=== PATIENT | female | born 1945 | race Caucasian/White ===

== ENCOUNTER 2019-09-11 22:41 | Inpatient (IN) | payer OTHER ==
[~2019-09-11] VITALS: Ht 170.2 cm; Wt 90.7 kg
[2019-09-11 22:42] VITALS: BP 104/74
[2019-09-11] MEDS ORDERED: ANTIFUNGAL POWD71 GM TOP (22:55)
[2019-09-11] MEDS ORDERED: BISACODYL10 MG RECTAL (22:56)
[2019-09-11] MEDS ORDERED: DULOXETINE HCL60 MG PO (22:56)
[2019-09-11] MEDS ORDERED: ASA81BEC PO (22:56)
[2019-09-11] MEDS ORDERED: FLOVENT HFA 4444 MCG INH (23:01)
[2019-09-11] MEDS ORDERED: FLONASE 0.05%50 MCG NASAL (23:01)
[2019-09-11] MEDS ORDERED: NEURONTIN100 MG PO (23:02)
[2019-09-11] MEDS ORDERED: GLUCOPHAGE1000 MG PO (23:02)
[2019-09-11] MEDS ORDERED: HALDOL 0.5 MG0.5 MG PO (23:03)
[2019-09-11] MEDS ORDERED: GUAIFENESIN DM S5 ML PO (23:03)
[2019-09-11] MEDS ORDERED: IRON325 M1 PO (23:04)
[2019-09-11 23:09] LABS: ABSOLUTE NEUTROPHILS 2.9 thou/uL (1.4-8.2); BASOPHILS 0.6 % (0.0-2.0); EOSINOPHILS 2.6 % (0.0-3.0); HEMATOCRIT 36.1 % (37.0-47.0); HEMOGLOBIN 11.8 gm/dL (12.0-15.0); LYMPHOCYTES 40.6 % (24.0-44.0); MCH 30.9 pg (26.0-34.0); MCHC 32.7 g/dL (28.0-37.0); MCV 94.4 fL (80.0-100.0); MONOCYTES 9.4 % (1.0-8.0); PLATELET COUNT 244 thou/uL (150-400); POLYS 46.8 % (36.0-66.0); RBC 3.83 mil/uL (4.20-5.00); WBC 6.1 thou/uL (4.0-11.0)
[2019-09-11 23:11] LABS: URINE BILIRUBIN NEGATIVE (Negative); URINE BLOOD NEGATIVE (Negative); URINE CLARITY CLEAR; URINE COLOR YELLOW; URINE GLUCOSE-RANDOM* NEGATIVE (Negative); URINE KETONES NEGATIVE (Negative); URINE NITRITE-REFLEX NEGATIVE (Negative); URINE PROTEIN (DIPSTICK) NEGATIVE (Negative); URINE SPECIFIC GRAVITY 1.025 (1.005-1.035); URINE UROBILINOGEN 0.2 E.U./dl (0.2-1.0)
[2019-09-11] MEDS ORDERED: PRINIVIL10 MG PO (23:14)
[2019-09-11] MEDS ORDERED: KRISTALOSE20 GM PO (23:14)
[2019-09-11] MEDS ORDERED: LORATIDINE 10 M10 M1 PO (23:15)
[2019-09-11] MEDS ORDERED: MILK OF MA400 MG/5 M PO (23:16)
[2019-09-11] MEDS ORDERED: MINTOX SUSPENS355 ML PO (23:17)
[2019-09-11] MEDS ORDERED: SEROQUEL 100 M100 M1 PO ×2 (23:19→23:20)
[2019-09-11] MEDS ORDERED: MYRBETRIQ50 MG PO (23:19)
[2019-09-11] MEDS ORDERED: SUPER THERAVIT1 EACH PO (23:19)
[2019-09-11] MEDS ORDERED: SINGULAIR 10 MG10 M1 PO (23:19)
[2019-09-11] MEDS ORDERED: SENNA PLUS TAB1 EACH PO (23:20)
[2019-09-11] MEDS ORDERED: REQUIP XL2 MG PO (23:20)
[2019-09-11] MEDS ORDERED: SIMVASTATIN80 MG PO (23:21)
[2019-09-11 23:22] LABS: ANION GAP 11 mmol/L (7-16); BUN 30 mg/dL (7-18); CALCIUM 9.4 mg/dL (8.5-10.1); CHLORIDE 105 mmol/L (98-107); CO2 21 mmol/L (21-32); CREATININE 1.5 mg/dL (0.6-1.0); GLUCOSE 125 mg/dL (74-106); POTASSIUM 4.4 mmol/L (3.5-5.1); SODIUM 137 mmol/L (136-145); URINE LEUKOCYTES-REFLEX 2+ (Negative)
[2019-09-11] MEDS ORDERED: TOPROL XL25 MG PO (23:23)
[2019-09-11] MEDS ORDERED: TRAMADOL 50 MG50 MG PO (23:25)
[2019-09-11 23:26] LABS: BACTERIA-REFLEX 1-9 Few /HPF (None Seen); CASTS None Seen /LPF (None Seen); CRYSTALS None Seen /LPF (None Seen); MUCUS 0-3 Light strn/LPF (None Seen); SQUAMOUS None Seen /LPF (0-3); TRANSITIONAL EPITHEL CELL 4-10 Moderate /LPF (None Seen); URINE RBC 0-2 Rare /HPF (0-2); URINE WBC-REFLEX 6-15 Few /HPF (0-5)
[2019-09-11 23:58] LABS: ALBUMIN 3.9 g/dL (3.4-5.0); SGOT 6 U/L (15-37); SGPT 20 U/L (30-65); TOTAL BILIRUBIN 0.3 mg/dL (<0.1-1.0); TOTAL PROTEIN 7.9 g/dL (6.4-8.2); TROPONIN-I <0.06 ng/mL (<0.06)
[2019-09-12 01:50] VITALS: BP 115/69
[2019-09-12 02:01] VITALS: BP 115/69
[2019-09-12 03:00] VITALS: BP 101/65
--- NOTE | 2019-09-12 05:21 | NUR ---
PT ARRIVED ON UNIT FROM ER AT 0230. RESIDES AT [facility]. ADMITTED WITH AMS--UTI. RESTING COMFORTABLY. NO NEEDS VOICED. CALL LIGHT WITHIN REACH. WILL CONTINUE TO PROVIDE FREQUENT OBSERVATION.
[2019-09-12 07:35] LABS: CALCIUM 9.4 mg/dL (8.5-10.1); CREATININE 1.5 mg/dL (0.6-1.0); POTASSIUM 4.4 mmol/L (3.5-5.1)
[2019-09-12 07:36] LABS: TSH 6.023 uIU/mL (0.358-3.740)
[2019-09-12 08:02] LABS: FOLIC ACID 33.6 ng/mL (8.6-58.9)
[2019-09-12 08:24] VITALS: BP 139/74
--- NOTE | 2019-09-12 10:51 | NUR ---
PT. CARE RESUMED AT 0700. PT. GETTING UP TO THE BEDSIDE COMMODE. PT IS NOT IN DISCOFORT OR ANY PAIN. SPOKE TO DR. HIGGINS AND DISCUSSED HOSPITAL STAY. PT. SITTING UP IN THE RECLINER. PT IS STILL CONFUSSED TO WHERE SHE IS IS ORIENTED TO TIME AND PERSON. IV FLUSHES AND IS PATENT WITH NO SIGNS OF REDNESS OR EDEMA. IV FLUIDS RUNNING.
--- NOTE | 2019-09-12 11:19 | EKG ---
[address] [address] ELECTROCARDIOGRAM REPORT Name: WING EVANS Room #: 436-P ADM IN M.R.#: [id number] Admission: 09/12/19 Attend Phys: Cristóbal Whitfield MD Discharge: Date of : 49 Report #: [id number] THIS REPORT FOR: //name// [facility] ED Test Date: 2019-09-11 Test Time: 23:17:05 Pat Name: WING EVANS Department: Room: 436 Gender: F Gas Check Pad Maker: soto coleman rn : 1945 Requested By: Dallas Raman Order Number: [id number] MD: Gilmar Montoya Measurements Intervals Cora Rate: 80 P: TN: QRS: 7 QRSD: 89 T: 64 QT: 377 QTc: 435 Interpretive Statements Sinus with PACs No previous ECG available for comparison Electronically Signed On 09-12-2019 11:19:20 [employer]OTCH [employer]IE[employer]ER by Gilmar Montoya [email or web address] <ELECTRONICALLY SIGNED> By: Gilmar Montoya MD 09/12/19 1119 [id number] [id number] MD JAMIE Chowdary
[2019-09-12 17:16] VITALS: BP 119/62
[2019-09-12 20:26] VITALS: BP 125/56
[2019-09-13 00:27] VITALS: BP 146/69
--- NOTE | 2019-09-13 02:06 | NUR ---
PT LYING IN BED. DENIES NEED FOR PAIN MEDICATION. SOME INCONTINENCE. RESTING COMFORTABLY. NO NEEDS VOICED. CALL LIGHT WITHIN REACH. WILL CONTINUE TO PROVIDE FREQUENT OBSERVATION.
[2019-09-13 07:51] VITALS: BP 151/75
--- NOTE | 2019-09-13 09:49 | NUR ---
ASSUMED CARE OF PT AT 0700. PT IS AOX2, FORGETFUL AT TIMES. PT WAS SINGING A SONG TO SELF DURING INTERACTION WITH NURSE. PT ABLE TO STATE PERSON AND PLACE. PT RATES PAIN 2/10, PAIN IN HIP CONTROLLED WITH ORAL ANALGESIC. PT TOLERATING DIET, FALL PRECAUTIONS IN PLACE. CALL LIGHT/PERSONAL ITEMS IN REACH. CONSULT CALLED TO PSYCH UNIT. WILL CONTINUE TO MONITOR PT FOR SAFTY.
--- NOTE | 2019-09-13 13:19 | NUR ---
ASSESSMENT-PT LIVED AT [facility] FOR 8 YRS BUT GOT WHERE SHE REQUIRED MORE ASSISTANCE AND MOVED INTO ASSISTED LIVING AT [facility] IN DECEMBER 2018. GRANDYASMEEN GRACIELA HELPS PT WITH HER AFFAIRS BUT DOES NOT HAVE POWER OF MEDICAL DETAILIST. PT HAS A DTR ANNA BUT PER BJ SHE HAS NOT HAD MUCH TO DO WITH THE PT. S/W ANNA BY PHONE WELL AND SHE ADMITS TO BEING ESTRANGED BUT WANTS TO GET MORE INVOLVED BUT SAYS BJ IS THE PERSON TO MAKE DECISIONS IF PT IS UNABLE. PT USES A WALKER FOR SHORT DISTNACES AND A WC FOR LONGER DISTANCES. PT RECEIVES ASSISTANCE WITH ADLS. 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 FABIOLA SAYS EVERY 1-2 MONTHS THAT PT BECOMES AGGRESSIVE OR AGITATES OT VERY CONFUSED AND HAS TO BE HOSPITALIZED TO ADJUST MEDS. PT HAS BEEN TO PSYCH AT [facility] AND [facility] [place] PER DTR. FOLLOWING TO ASSIST WITH DC PLANNING.
[2019-09-13 15:10] VITALS: BP 110/48
--- NOTE | 2019-09-13 17:22 | NUR ---
I have reviewed the documentation by POPPY DIALLO from 09/13/19 to 09/13/19 and I concur with it. GWEN LIPSCOMB
[2019-09-13 19:20] VITALS: BP 159/84
--- NOTE | 2019-09-14 02:59 | NUR ---
ASSESSMENT COMPLETED.PT ALERT,CONFUSED AND FORGETFUL.PT OBSERVED SINGING IN HER ROOM TWICE IN A LOUD VOICE, WAS EASILY REDIRECTED. PT WITH INCONTINENCE,PERICARE WITH EACH INCONT.IVF AND IV ABX INFUSING.PT ABLE TO REPOSITION SELF IN BED.PT SLEEPING ON HER BED AT THIS TIME.FALL PRECAUTIONS IN PLACE,CALL LIGHT WITHIN REACH.
[2019-09-14 04:35] VITALS: BP 154/86
[2019-09-14 07:45] VITALS: BP 153/84
--- NOTE | 2019-09-14 10:02 | NUR ---
PT RESIDES AT [facility] FAXED CLINICAL UPDATE TO FACILITY SPOKE WITH MAMADOU IN ADM SHE RECEIVED UPDATE. DP TO FOLLOW.
--- NOTE | 2019-09-14 11:44 | NUR ---
I was asked to assess the patient to see if she would meet criteria for inpatient psych. Fabiana is sitting in the recliner. She is singing loudly and talking to someone. No one was in her room at this time. I introduced myself to Fabiana, and asked if I could speak to her. She kept singing and told me to go f--k myslef. I called Dr. Gordillo and informed him of the situation. He stated he would review the case.
[2019-09-14] MEDS ORDERED: NOVOLOG100 UNIT/1 SUBQ (13:09)
[2019-09-14] MEDS ORDERED: TYLENOL325 MG PO (13:09)
[2019-09-14] MEDS ORDERED: TOPAMAX 25 MG T25 M1 PO (13:09)
--- NOTE | 2019-09-14 15:06 | NUR ---
PT IS CONFUSED AND FORGETFUL. PT RECEIVED REDIRECTION FROM NURSE. NONSTOP SINGING AND WITH HER EYES CLOSED. PT HAS POOR APPETITE WITH BREAKFAST AND LUNCH. PT PREOCCUPIED WITH SINGING. VSS, GAVE REPORT TO BOB ON PSYCH UNIT. PT TRANSFERRED BY WHEELCHAIR VIA STAFF. IV DISCONTINUED.
--- NOTE | 2019-09-14 16:47 | NUR ---
LEFT MESSAGES X2 FOR GRANDSON GRACIELA TO ALERT OF PSYCH REC FOR TRANSFER TO BEHAVIORAL HEALTH UNIT HERE AT [facility] TODAY. ALSO LEFT MESSAGE FOR PT'S DTR ANNA TO ALERT OF THIS WELL. S/W MAMADOU ADM ARIAS FROM [facility] AND SHE SAYS YES THEY WOULD BE ABLE TO ACCEPT PT BACK ONCE MEDICALLY STABLE. SHE SAYS DEPENDING ON DX PT MIGHT NEED A LEVEL II BEFORE RETURNING BACK TO THEM BUT THEY WOULD BE ABLE TO TAKE HER BACK. NURSES NOTES FROM FACILITY OBTAINED AND THIS INFO WAS RELAYED TO DR HIGGINS AND TO DR NEAL AND DECISION WAS MADE TO ADMIT PT TODAY TO [facility] TODAY FOR MEDICATION REGULATION. PT HAS CONTINUED TO CHANT CONSTANTLY ALL DAY.
== END 2019-09-14 15:16 | DRG 689 ==
LOC: ER 22:41 → EROBS 09-12 00:46 → 4S 09-12 00:46 → SBH 09-14 15:09 → 4S 09-14 15:11
PROVIDERS: Nurse Practitioner Family; Physician Assistant; ADMIT Internal Medicine
DX: N39.0 Urinary tract infection, site not specified (principal); G93.41 Metabolic encephalopathy; N17.9 Acute kidney failure, unspecified; G93.40 Encephalopathy, unspecified; F03.91 Unspecified dementia, unspecified severity, with behavioral disturbance; K59.00 Constipation, unspecified; G25.81 Restless legs syndrome; E11.42 Type 2 diabetes mellitus with diabetic polyneuropathy; I12.9 Hypertensive chronic kidney disease with stage 1 through stage 4 chronic kidney disease, or unspecified chronic kidney disease; E11.22 Type 2 diabetes mellitus with diabetic chronic kidney disease; F32.9 Major depressive disorder, single episode, unspecified; F41.9 Anxiety disorder, unspecified; N18.3 Chronic kidney disease, stage 3 (moderate); E78.5 Hyperlipidemia, unspecified; F25.9 Schizoaffective disorder, unspecified; F39 Unspecified mood [affective] disorder; F43.10 Post-traumatic stress disorder, unspecified; R41.0 Disorientation, unspecified; E66.9 Obesity, unspecified; Z68.31 Body mass index [BMI] 31.0-31.9, adult; Z88.6 Allergy status to analgesic agent; Z88.1 Allergy status to other antibiotic agents; Z88.0 Allergy status to penicillin; Z88.8 Allergy status to other drugs, medicaments and biological substances; Z79.82 Long term (current) use of aspirin; Z79.899 Other long term (current) drug therapy
CPT/HCPCS: 10100; 10102

== ENCOUNTER 2019-09-14 15:18 | Inpatient (IN) | payer OTHER ==
[~2019-09-14] VITALS: Ht 170.2 cm; Wt 76.8 kg
[~2019-09-14 15:18] MED LIST: ANTIFUNGAL POWD71 GM TOP; ASA81BEC PO; BISACODYL10 MG RECTAL; DULOXETINE HCL60 MG PO; FLONASE 0.05%50 MCG NASAL; FLOVENT HFA 4444 MCG INH; GLUCOPHAGE1000 MG PO; GUAIFENESIN DM S5 ML PO; HALDOL 0.5 MG0.5 MG PO; IRON325 M1 PO; KRISTALOSE20 GM PO; LORATIDINE 10 M10 M1 PO; MILK OF MA400 MG/5 M PO; MINTOX SUSPENS355 ML PO; MYRBETRIQ50 MG PO; NEURONTIN100 MG PO; NOVOLOG100 UNIT/1 SUBQ; PRINIVIL10 MG PO; REQUIP XL2 MG PO; SENNA PLUS TAB1 EACH PO; SEROQUEL 100 M100 M1 PO; SIMVASTATIN80 MG PO; SINGULAIR 10 MG10 M1 PO; SUPER THERAVIT1 EACH PO; TOPAMAX 25 MG T25 M1 PO; TOPROL XL25 MG PO; TRAMADOL 50 MG50 MG PO; TYLENOL325 MG PO
--- NOTE | 2019-09-14 18:31 | NUR ---
PT ARRIVES TO UNIT VIA AT APPROX 1500 ACC[address]ED BY [address] [place] [address] NURSING STAFF. PER REPORT CALLED TO THIS RN FROM [facility] SP[facility]Y PT ADMITTED TO [address] [place] [address] 09/12 WITH AMS And to r/o UTI. HAS BEEN RESIDING AT [facility] PRIOR TO HOISPITAL ADMIT. REPORTED TO HAVE DPOA ANNA TROY [phone] WHO WOULD BE SIGNIING HER INTO [facility] ARRIVAL TO UNIT PT IS YELLING LOUDLY-IN SINGING TYPE CADANCE AND RHYTHM-UNABLE TO BE REDIRECTED OFF OF SINGING TO ANSWER ANY QUESTIONS FOR ADMIT INTERVIEW. UNABLE TO DETERMINE ORIENTATION LEVEL D/T CLINICAL CONDITION. ANNA TROY CONTACTED TO OBTAIN CONSENTS FOR ADMIT HOWEVER STATES SHE IS NOT DPOA NOR IS OTHER IDENTIFIED CONTACT [phone]. DR. NEAL NOTIFIED OF ABOVE -ORDERS OBTAINED FOR GEODON 10MG IM FOR AGITATION AND CONSTANT SCREAMING-ADMINISTERED IM LVG AT APPROX 1627 WITH LITTLE RESULTS NOTED. DR HIGGINS CONTACTED REGARDING S.S INSULIN ORDERS-AND INDICATES HE WOULD ORDER. BLOOD SUGAR CHECKED AT 1700 DESPITE MUCH RESISITANCE AND IS 112-PT REFUSING TO EAT SUPPER. NOTED ON ADMIT TO HAVE REDDNED EXCORIATED AREA TO MIDLINE COCYX-PHOTOS OBTAINED AND PLACED IN CHART. ADMIT VS 145/67 P-80 R-18 P 82. O2 SAT 92 D/T
[2019-09-14 19:30] VITALS: BP 167/76
[2019-09-14 19:31] VITALS: BP 121/47
--- NOTE | 2019-09-15 06:23 | NUR ---
Care assumed of patient at 1915: Nurse entered room to assess patient. Patient continually singing at a very loud volume. Patient not able to answer any questions appropriately. No s/s of pain or discomfort observed. No s/s of delusional or paranoia behaviors, AH or VH. Patient took HS medication whole without difficulty. Nurse sang to patient at a loud volume for her to focus on taking her medication and drinking water out of straw. Patient did not make any eye contact, blunted affect. Patient was able to fall asleep approximately 30 minutes after taking medications and had slept quietly until approximately 0115. This nurse entered room at that time to see if patient had been incontinent of bladder/bowel. Patient woke up, looked at nurse and said very clearly "hi". Nurse introduced self. Patient then stated "I am going to need a room with a TV, the room I had before had a TV, this is important". Education provided that there are no TVs in patient rooms on this floor and the doctors feel it important that she be on this floor. Patient stated "oh, ok" but did look confused. Patient incontinent of bladder. Hannah care provided, linens changed, barrier cream applied to buttock which appears reddened/excoriated. Patient was able to state that she is at [facility], the current month and year, her birthdate, the facility that she resides at. Denies pain or discomfort. Patient states that she is able to walk around at her previous facility with a walker. Patient asked what she needed to do if she had to use the bathroom. Patient provided a call calix and was educated on use. Patient able to turn side to side in bed with mod assist x2. Patient was asked if she remembered singing earlier in the night, she stated yes. She stated that she sings to relieve her stress. Patient educated that it is important to respect other patients and if she is asked ot lower her singing volume, she needs to respect that. Patient states she understood. Patient also educated that it is important to work with the doctors and all staff when she is asked questions and to participate in her care plan. Patient stated that she understood. Patient slept a total of 7.7 hours this shift. Staff responded to call calix around 0500. Patient stated that she needed to have a bowel movement. Patient was incontinent of bladder but continent of bowel in bedside commode. Patient required mod assist x2 for transfer. Patient requested to get up for the day and reports that she hasn't slept that well in a long time. Patient assisted with AM hygiene. Patient sitting in dayroom with newspaper, word search and magazines at this time. Patient pleasant, cooperative and respectful.
--- NOTE | 2019-09-15 07:00 | NUR ---
Assumed care of patient this am. Patient in good spirits. Patient communicating appropriately. Patients affect soft. Patient ambulates without assistance. Patient takes medications whole with water. Patients assessment reveals clear breath sounds, active bowel sounds, and s1 s2 heard with auscultation.
[2019-09-15 07:30] VITALS: BP 141/63
--- NOTE | 2019-09-15 08:40 | NUR ---
SW called gr daughter to assist with intake assessment and left a VM
--- NOTE | 2019-09-15 08:48 | NUR ---
Assess due to low jaren score. Pt admit to [facility] unit for unspecified psychosis. Has hx schizoaffective disorder, PTSD, dementia, DM. BG 171-256 so will change diet to carb control. Was eating 75-80% while on acute unit in hospital, but 30% on admit day of [facility]. 2 different wts documented 200 lb vs 170 lb. Will follow up again on 09/20 to determine further intake trends and pt should be reweighed over the weekend. Low nutrition risk at this time
[2019-09-15 09:13] VITALS: BP 141/63
--- NOTE | 2019-09-15 09:20 | H ---
[facility] [place] [address] HISTORY AND PHYSICAL Name: WING EVANS Room #: 522A-A ADM IN .R.#: [id number] Admission: 09/14/19 Attend Phys: Atif Gordillo DO Discharge: Date of : 49 Report #: [id number] THIS REPORT FOR: //name// CC: Atif Gordillo Donald Gonzales DATE OF SERVICE: 09/14/2019 INPATIENT PSYCHIATRIC EVALUATION ATTENDING PHYSICIAN: Atif Gordillo DO. URBAN SOCIOLOGIST: Mike Mayer MD REASON FOR ADMISSION: The patient transferred from the medical floor where she was admitted from 09/12/2019 to 09/14/2019 for a urinary tract infection and delirium. The patient has been quite symptomatic with loud verbalizations concerning not only for psychosis but evolving catatonia. HISTORY OF PRESENT ILLNESS: This is a 74-year-old female admitted on 09/12/2019, resides at the [facility]. The patient was admitted as stated with the urinary tract infection. She also has significant medical history of schizophrenia, PTSD, cognitive deficits, particularly with communication. The patient was not any more cooperative or able to be interviewed tonight as she also was unable to redirect informant 2 days ago. Apparently from correction reports, she has been increasingly disoriented over the last 2 days, so that would be 4 days total now, with auditory and visual hallucinations. Ativan and Haldol have not been effective. The patient was seen unintelligibly in the ER. She has a history of 2 inpatient psychiatric treatments at [facility] and [facility]. The patient has also received substance abuse treatment for alcohol at [facility]. The patient herself was having difficulty staying awake in the ER, but she has been awake all the time she has been on the geriatric psychiatry unit this afternoon. She was not cooperative with stating her name or other commands. She also did not respond to noxious stimuli such as sternal rub or pinching her big toe. ALLERGIES: CODEINE, ERYTHROMYCIN, PENICILLINS, PHENOBARBITAL. The laboratories are reviewed later. MEDICATIONS: At nursing facility include miconazole, aspirin, bisacodyl, duloxetine, fluticasone, gabapentin, metformin, haloperidol, ferrous sulfate, lactulose, lisinopril, loratadine, magnesium hydroxide, montelukast, vitamins, mirabegron which is Myrbetriq for bladder, Seroquel, ropinirole, senna, simvastatin, metoprolol, tramadol. [address] [address] HISTORY AND PHYSICAL Name: WING EVANS Room #: 52-A [facility] IN ..#: [id number] Admission: 09/14/19 Attend Phys: Atif Gordillo DO Discharge: Date of : 49 Report #: [id number] PAST MEDICAL HISTORY: Includes influenza pneumonia at some point, dysphagia, gait abnormality, hypertension, anemia, constipation, peripheral neuropathy, restless leg syndrome, hyperlipidemia, tremors, diabetes mellitus type 2. PSYCHIATRIC HISTORY: As stated above, includes PTSD, schizophrenia, depression, anxiety. SOCIAL HISTORY: Known alcohol use, unable to ascertain other substance use. REVIEW OF SYSTEMS: Cannot be completed due to the patient's lack of cooperation. LABORATORY DATA: Most recently on September 11, hematology: H and H 10.8 and 36.1, white count 6.1, platelet count 244. Sodium 139, potassium 4.4, chloride 105, bicarbonate 20, anion gap 14, BUN 29, creatinine 1.5, this was done in September, estimated GFR 34, glucose 107. Lactic acid 0.9, calcium 9.4, total bilirubin 0.3, AST 6, ALT 20, alkaline phosphatase 84. Troponin less than 0.06. Total protein 7.9, albumin 3.9. B12 level 1713, folate 33.6. Urinalysis at the time of admission showed 2+ leukocyte esterase, 6-15 wbc's, moderate epithelial cells, 1-9 bacteria, 0-3 light urine mucus. The patient's urine culture did not grow any significant anup. Chest x-ray done on 09/11/2019 showed right basilar atelectasis, infiltrate, retrocardiac, left lower lobe atelectasis, infiltrate with mild cardiomegaly. Upper lungs and mid lungs appear clear. PHYSICAL EXAMINATION: VITAL SIGNS: On the day of admission, temperature 36.7, pulse 70, respirations 18, BP 121/47, O2 sat 95%. MUSCULOSKELETAL: Nonambulatory in bed. Significant psychomotor agitation. MENTAL STATUS EXAMINATION: This is a well-developed, disheveled female appearing stated age, lying in bed, saying unintelligibly at times, nonreactive to the environment. Attention impaired. Concentration impaired. Speech abnormal. Thought process is nonlinear. Thought content, difficult for her to focus, some psychomotor agitation, no psychomotor retardation, unable to assess for suicidality or homicidality; auditory, visual, or tactile hallucinations. Insight impaired. Judgment impaired. FORMULATION: A 74-year-old female transferred to geriatric psychiatry after 2 days' stay in the medical unit with continued poor clarity of thoughts and bizarre behavior. 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 Medical comorbidities include diabetes mellitus type 2, chronic peripheral neuropathy, hypertension, hyperlipidemia, restless leg syndrome. [facility] [place] [address] HISTORY AND PHYSICAL Name: WING EVANS Room #: 522A-A ADM IN M.R.#: [id number] Admission: 09/14/19 Attend Phys: Atif Gordillo DO Discharge: Date of : 49 Report #: [id number] PLAN: Evaluate, stabilize, obtain collateral. Given the precarious situation, we will make several adjustments. Seroquel 100 mg at bedtime and 50 mg p.o. daily in the morning. Continue loratadine 10 mg p.o. daily, ferrous sulfate 325 mg p.o. daily, aspirin 325 mg p.o. daily. We will give her 1 Senna S tab p.o. twice per day, 1 Requip 2 mg p.o. at bedtime and an additional 25 mg at bedtime Seroquel; continue metoprolol succinate 25 mg at bedtime. Start scheduled lorazepam 9:00, 3:00, 9:00 p.m. forced if she refuses due to seriousness involving catatonia. ESTIMATED LENGTH OF STAY: 10-14 days. Time spent on review of records, coordination of care and minimal information from the patient is about 45 minutes. STRENGTHS: She is insured. WEAKNESSES: Advancing age, difficulty with treatment of catatonia. <ELECTRONICALLY SIGNED> By: Atif Gordillo DO 09/15/19919 41 26 Atif Gordillo DO /nt
--- NOTE | 2019-09-15 13:33 | NUR ---
Bowen spoke with [facility] and completed the intake and treatment plan. Pt has an estranged relationship with her dueduardoer but is closer to her grandsons BJ [phone] and Atif [phone]. Pt comes from [facility]. Bowen also spoke with admissions at [facility] and they are willing to accpet this pt back into thier communinity.
[2019-09-15 19:41] VITALS: BP 140/83
--- NOTE | 2019-09-16 02:05 | NUR ---
Patient assessed and is alert x 3. SKIN WARM AND DRY. RESP EVEN AND UNLABORED. NO HALLUCINATIONS. NO CATATONIC NOTED. SITS UP IN THE W/C. IS A MOD ASSIST X 1. DOES NOT WALK OTR STAND MUCH. ACCUCHECKS WAS 245 WITH INSULIN GIVEN ORDERED. TAKES MED WELL WHOLE WITH H20. BM WAS 12/. NO NEDEMA NOTEED IN LOWER EXTREMITIES. REMAINS A FALL RISK. LUNGS CTA. ABDOMEN SOFT +4. NO AH/VH THIS SHIFT YET. CONT PLAN OF CARE. REMAINS CONFUSED AT TIMES.
--- NOTE | 2019-09-16 02:47 | NUR ---
DAVID HAS HAD NPO BEHAVIORS THIS SHIFT SI FAR. ALSO WAS VERY COOPERATIVE.
[2019-09-16 06:17] LABS: HEMATOCRIT 37.1 % (37.0-47.0); HEMOGLOBIN 12.1 gm/dL (12.0-15.0); MCH 31.2 pg (26.0-34.0); MCHC 32.8 g/dL (28.0-37.0); MCV 95.1 fL (80.0-100.0); RBC 3.9 mil/uL (4.20-5.00); RDW 12.9 % (10.5-14.5); WBC 4.9 thou/uL (4.0-11.0)
[2019-09-16 06:30] LABS: CALCIUM 9.8 mg/dL (8.5-10.1); CREATININE 1.2 mg/dL (0.6-1.0); MAGNESIUM 1.9 mg/dL (1.8-2.4); POTASSIUM 4.6 mmol/L (3.5-5.1)
--- NOTE | 2019-09-16 08:15 | NUR ---
PT SITTING OUT IN DINNING ROOM. PT IN W/C. PT STATED SHE HAS SOME PAIN TO RT HIP OF 8 ON 1-10 SCALE. PT STATED PAIN IS SHARP AND SOMETIMES SORE. PT STATED SHE CAN BEAR WEIGHT TO LEFT LEG. PT LUNGS CLEAR. COMPLIANT WITH STAFF.
[2019-09-16 08:30] VITALS: BP 138/80
[2019-09-16 08:37] LABS: FOLIC ACID 23.2 ng/mL (8.6-58.9)
--- NOTE | 2019-09-16 15:00 | NUR ---
ASSISTED PT TO BSC X1 PERSON. CHANGED BRIEF WITH SMALL AMOUNT OF URINE. ADM TYLENOL 325MG 2 TABS PO FOR PAIN TO RT HIP OF 8 ON 1-10 SCALE. PT ABLE TO PIVOT FROM W/C TO BSC TO BED.
--- NOTE | 2019-09-16 17:29 | NUR ---
MARGUERITE faxed updates for pt to [facility]. MARGUERITE team will continue to follow pt during her stay.
[2019-09-16 20:05] VITALS: BP 146/63
[2019-09-16 23:12] VITALS: BP 146/63
--- NOTE | 2019-09-16 23:16 | NUR ---
PATIENT WAS IN BED WHEN THIS NURSE CAME ON DUTY AT 1900. PATIENT'S GLUCOSE WAS 167 TONIGHT AT 2000 AND LISPRO 3 UNITS WAS GIVEN. PATIENT IS A/O X 2-3. SHE WAS GIVEN TYLENOL 650 WITH HER HS MEDS TONIGHT D/T 4/10 PAIN AT COCCYX AREA WHERE SHE HAS SMALL EXCORIATION. AREA IS CLEAN AND NO SIGNS OF INFECTION AND OFFICE RN. PATIENT TOOK HER MEDS WHOLE WITH WATER. SHE WAS THIRSTY TONIGHT AND DRANK AROUND 450 CC OF ICE WATER. WHICH IS GOOD SINCE HER BUN IS UP TO 23 AND CREATINE AT 1.2. NO SIGNS OF EDEMA. LUNGS CTA BILATERALLY. HEART SOUNDS REGULAR. BOWELS SOUNDS POSITIVE X4. PATIENT DID REPORT A BM ON DAY SHIFT. PATIENT WAS UP TO THE BSC WITH ASSIST BUT WAS UNABLE TO VOID AFTER GETTING THERE. WILL CONTINUE TO MONITOR THIS. PATIENT NEEDS ASSISTANCE WITH ADLS X 1. SHE USES A WC FOR TRANSFER. BED ALARM ON AND BED IN LOW POSITION.
[2019-09-17 01:06] LABS: GLYCOHEMOGLOBIN (HGB A1C) 7.2 % (4.8-5.6)
--- NOTE | 2019-09-17 05:25 | NUR ---
PATIENT ASSISTED TO BSC. SHE HAD BEEN INCONTINENT OF URINE. BRIEF CHANGED AND SHE WAS CLEANED UP. SHE DID VOID URINE THIS TIME. SHE IS BACK TO BED. PATIENT IS CALM AND COOPERATIVE.
[2019-09-17 07:30] VITALS: BP 130/78
--- NOTE | 2019-09-17 13:56 | NUR ---
Assumed care at 0715 on 09/17/19. AT 0750 PATIENT SITTING IN DAYROOM IN WHEEL CHAIR COMPLAINS OF BEING COLD AND ASKS FOR A BLANKET. BLANKET PROVIDED. SITS AT TABLE FOR BREAKFAST. DENIES OTHER NEEDS. DENIES SI/HI AND AVH. COMPLAINS OF PAIN TO RIGHT HIP TYLENOL GIVEN. wHILE TALKING TO PATIENT SHE STATES THAT SHE REMEMBERS WHAT HER PARENTS TOLD HER " NOT TO TRUST EVERYBODY" THIS BEING SAID AFTER SAYING SHE DOES NOT COMMUNICATE WITH OTHERS FOR THIS REASON. PATIENT CALM AND PLEASANT WHILE TALKING TOO, ACTS APPROPRIATE.
--- NOTE | 2019-09-17 14:33 | NUR ---
MARGUERITE contacted [facility] and spoke to Becky; MARGUERITE provided an update that pt was ready for discharge. She asked that SW contact the liason Savannah at [phone] so she can assess pt. MARGUERITE contacted Savannah who said she would be up this afternoon to visit. MARGUERITE met with Savannah who agreed pt is ready to come back to the facility. She said she will arrange transportation for pt Friday morning and asked SW to fax updates. SW team will continue to follow pt during her stay. [facility] [address] [place] [address]
--- NOTE | 2019-09-17 14:42 | NUR ---
MARGUERITE spoke with Linda (pt's daughter) who wanted an update on pt. SW provided an update. Linda mentioned wanting to get a DPOA doc signed by pt; she wants to be pt's DPOA. MARGUERITE explained that she did not think pt can sign DPOA documents due to her cognitive skills, and if she can then pt has the right to decide who she wants to designate that responsibility. Linda said ok. MARGUERITE, along with pt's nurse, met with pt and explained what a DPOA is. She asked pt orientation questions, and pt could not identify the date or the day. When MARGUERITE asked pt again to tell her in her own words what a DPOA is, she responded "something Jade does." MARGUERITE contacted Linda and let her know pt will be leaving to go back to facility on Friday, and that she was unable to get a DPOA doc signed by pt. Linda asked what the next step is, and MARGUERITE explained she can contact a cord maker and attempt to gain guardianship. Linda stated she is not willing to pay the money for that as it is expensive. MARGUERITE team will continue to follow pt during her stay.
[2019-09-17 19:28] VITALS: BP 163/83
--- NOTE | 2019-09-18 04:17 | NUR ---
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 SHE HAS BEEN SLEEPING THIS ENTIRE SHIFT, WAKING UP FOR MEDS AND ASSESSMENT. PLEASANT AND COOPERATIVE WITH CARES AND ASSESSMENT. TOOK ALL MEDS WHOLE. NO SINGING NOTED.
[2019-09-18 09:21] VITALS: BP 128/70
[2019-09-18 10:32] VITALS: BP 128/70
--- NOTE | 2019-09-18 10:49 | NUR ---
PATIENT HAS BEEN UP AND OUT IN THE DAY ROOM, SITTING IN A WHEELCHAIR. PATIENT TOOK ALL MEDICATION WHOLE WITHOUT DIFFICULTY. PATIENT IS EATING MEALS, AND DRINKING FLUID WELL. PATIENT DENIES SUICIDAL/HOMICIDAL IDEATION. SHE DENIES DEPRESSION/ANXIETY. PATIENT DID ACKNOWLEDGE AUDITORY HALLUCINATION. "ANYTIME I CLOSE MY EYES, I HEAR THIS BLOND LADY SAYING I HAVE BROWN EYE, AND AM . I WISH SHE WILL LEAVE ME ALONE". PATIENT REDIRECTED THAT THE VOICES ARE NOT REAL, PATIENT VERBALIZES UNDERSTANDING, AND STATES. "IT'S REAL TO ME IT MIGHT NOT BE FOR YOU". PATIENT DENIES HAVING PHYSICAL PAIN. NO SIGNS AND SYMPTOMS, OF HYPO/HYPERGLYCEMIA NOTED, INSULIN GIVEN PER SLIDING SCALE ORDER. AFFECT IS HAPPY, MOOD IS CALM. PATIENT PARTICIPATED IN GROUP THERAPY THIS MORNING. NO SIGN OF ACUTE DISTRESS NOTED AT THIS TIME, WILL MONITOR FOR SAFETY.
--- NOTE | 2019-09-18 13:55 | NUR ---
PT. RECEIVED SHOWER TODAY WITH CLIENT REPORTING ASSOCIATE ASSISTANCE.
[2019-09-18 19:11] VITALS: BP 155/90
--- NOTE | 2019-09-19 03:22 | NUR ---
RECIEVED THIS PATIENT FOR AB INITIO ETL DEVELOPER. SHE HAS BEEN LYING IN BED SINCE MY ARRIVAL. EASILY ROUSABLE. PLEASANT AND COOPERATIVE WITH ASSESSMENT PROCESS. TOOK ALL MEDS WHOLE WITHOUT DIFFICULTY. RECIEVED SS INSULIN 4U PER ORSEDS FRO ACCUCHECK OF 207. NO LOUD SINGING THIS SHIFT. HAS BEEN ACKNOWLEDGING A/H. NO C/O. NO APPARENT DISTRESS RESTING QUIETLY AT THIS TIME
--- NOTE | 2019-09-19 08:33 | NUR ---
Date of Admission: 09/14/19 Date of Activity Therapy Assessment:09/17/2019 Activity Goal:Two groups per day Initial Goal:Pt to attend two recreation therapy groups per day to enhance leisure awareness and to identify positive community resources. Weekly progress towards goal:Did not achieve Group participation level: Full engagement when present Behaviors observed:Pt did well in groups. There were moments of confusion and at times struggled with directions. Plan: No change towards goal
[2019-09-19 08:50] VITALS: BP 113/53
--- NOTE | 2019-09-19 08:57 | NUR ---
0644 Report received from overnight shift, patient up and in day room. Patient alert calm cooperative, patient ate breakfast took medication without incidence. Patient attends group but does not really participate. We will continue to monitor patient for safety.
[2019-09-19 09:02] VITALS: BP 113/53
[2019-09-19 19:17] VITALS: BP 139/72
[2019-09-19 22:29] VITALS: BP 139/72
--- NOTE | 2019-09-19 23:51 | NUR ---
PATIENT WAS UP IN THE [facility] IN DINING ROOM SITTING WITH PEERS. SHE HAS BEEN CALM AND COOPERATIVE. SHE TOOK HER MEDS WHOLE. HER GLUCOSE WAS 202 AND SHE WAS GIVEN LISPRO 4U. PATIENT WAS UP TO BSC BEFORE GOING TO BED. SHE IS A/0 X 1-2. SHE DENIES PAIN. NO SI/HI. LUNGS CTA BILATERALLY. BARRIER CREAM TO COCCYX AREA THAT IS RED. BED IN LOW POSITON AND BED ALARM ON. CONTINUING TO MONITOR. PATIENT TO DC TOMORROW.
--- NOTE | 2019-09-20 02:22 | NUR ---
PATIENT UP TO THE BSC. SHE IS VERY SLEEPY AND NOT BEARING WEIGHT WELL. SHE ALERTED US BY DOHERTY THAT SHE NEEDED TO GO. SHE DID VOID URINE. CLEANED LILIAM AREA WITH SOAP AND WATER AND APPLIED BARRIER CREAM TO COCCYX AREA. AREA IS IMPROVING AND NOT RED HAD BEEN AND PATIENT WITHOUT PAIN WHEN AREA CLEANED. BED ALARM ON AND BED IN LOW POSITION.
--- NOTE | 2019-09-20 05:50 | NUR ---
PATIENT RANG FOR NURSE. PATIENT STATES THAT SHE IS NOT FEELING WELL. SHE STATES THAT SHE HAS PAIN IN RIGHT HIP AT 7/10. SHE STATES SHE IS FEELING NAUSEATED. SHE STATES HER LEGS FEEL SWOLLEN BUT THEY DO NOT LOOK SWOLLEN. PATIENT GIVEN ZOFRAN 4MG PO AND TYLENOL 650MG. VSS 110/45, P68 R18 T97.0 AND 02 AT RA IS 99%. CHECKED PATIENT'S B/ 3 TIMES AND HAD LYLE, RN CHECK ALSO FOR ME TO CONFIRM. FIRST READING WAS 105/45 WITH LARGE CUFF. 2ND READING WAS 113/38 WITH REGULAR CUFF AND THEN 110/45 WITH REGULAR CUFF. CALL OUT TO DENISSE BUNN. HOB UP 45%. EMESIS BASIN WITH PATIENT. DRY HEAVES BUT NO VOMITING. SHE WAS GIVEN ICE CREAM HS SNACK AND STATES THAT THIS UPSETS HER STOMACH SOMETIMES WITH HER GERD. PATIENT'S BLOOD GLUCOSE AT 0515 IS 153.
--- NOTE | 2019-09-20 06:03 | NUR ---
SPOKE WITH DONOVAN HALE, DENISSE BY PHONE. MADE HER AWARE OF PATIENT'S BP OF 110/45 AND GLUCOSE OF 153. LET HER KNOW PATIENT IS SCHEDULED TO BE DISCHARGED TODAY. SHE STATED THAT IF PATIENT'S NAUSEA NOT BETTER TO GO AHEAD AND TRY MYLANTA PRN ON HER EMAR. WILL CONTINUE TO MONITOR.
--- NOTE | 2019-09-20 06:30 | NUR ---
PATIENT STATES SHE IS FEELING MUCH BETTER AND DOES NOT WANT THE MYLANTA AT THIS TIME. PATIENT UP TO [facility] AND HAD LARGE BM. SHE STATES THIS MADE HER FEEL SO MUCH BETTER. PATIENT IN DINING ROOM SITTING AT THE TABLE IN HER WC AND SMILING. PATIENT IS DRINKING COFFEE AND WATCHING TV.
[2019-09-20 07:54] VITALS: BP 114/70
[2019-09-20] MEDS ORDERED: SEROQUEL 100 M100 M1 PO (07:56)
[2019-09-20] MEDS ORDERED: SEROQUEL 25 MG25 M1 PO ×2 (07:56)
[2019-09-20] MEDS ORDERED: LORAZEPAM 1 MG T1 MG PO (07:57)
[2019-09-20] MEDS ORDERED: GLUCOPHAGE1000 MG PO (07:59)
--- NOTE | 2019-09-20 11:14 | NUR ---
MARGUERITE called [facility] to confirm this d/c at noon. Spoke kizzy Nuñez and she requested the d/c packet sent to (f) [phone]. Pt is expected to d/c today .
--- NOTE | 2019-09-20 13:39 | NUR ---
MARGUERITE D/C note The [facility] laboratory secretary notified MARGUERITE that pt had not been picked up by [facility] of yet as of 1300. MARGUERITE contacted [place] who notified SW there was a mix-up with the driver medic; the driver medic went to the 4th floor to retrieve pt and was told by staff that pt had left. So transportation also left. She said that they were turning around to come get pt. She also asked MARGUERITE to fax a list of pt's meds. No other needs for SW team to address at this time.
--- NOTE | 2019-09-20 14:29 | NUR ---
MARGUERITE received a call from [facility] stating pt needs a Level II since her diagnosis is schizoeffective; she said that was not the diagnosis when she resided there. MARGUERITE explained that she has a neurocognitive disorder so she should not need a Level II. MARGUERITE told [facility] she would call her back after talking with the psych doct. The psych doc confirmed that he does not know of her having schizoeffective disorder and he was treating her for psychosis and delirium. He wrote an order stating that pt suffers from a neurocogntive disorder and that she has been treated successfully for delirium and psychosis. MARGUERITE contacted [facility] again who said she did find documentation of the facility notating pt's diagnosis is schizoaffective disorder so she resided there with that diagnosis. She also said that a Level I was done with pt's diagnosis being MDD in the past. She said she will consult with her financial team to see if the note from the psych doct. will suffice. She asked SW to fax it to [phone]. She also said their transportation team will be able to pick pt up if the financial team can accept the note. MARGUERITE faxed pt's note. MARGUERITE team will continue to follow pt during her stay on the unit.
--- NOTE | 2019-09-20 15:38 | NUR ---
MARGUERITE received a call from Ria with [facility] stating they will be accepting pt back today, and she is setting up transportation for the earliest time possible with [employer]. After 45 min. MARGUERITE had not heard from [facility]ia about a time. MARGUERITE contacted [facility] and was told [facility] left. MARGUERITE spoke to Becky who said she was unaware of some of the issues with transportation and she apologized for the mix-ups. She said she is contacting [facility] to receive update on a time. Becky contacted MARGUERITE back and said due to weather [facility] responded they will be here when they can. MARGUERITE provided this update to pt's nursing team. No other needs for MARGUERITE team to address at this time.
--- NOTE | 2019-09-20 16:42 | NUR ---
PATIENT TRANSPORTED TO FACILITY AT [address] [place] [address]. BELONGINGS TAKEN ALONG WITH DOCUMENTATION SIGNED AND REVIEWED. PATIENT DID NOT HAVE INSULIN PRIOR TO DINNER. ALERT - CALM AND AGREEABLE.
--- NOTE | 2019-09-21 22:01 | D ---
[place] [address] DISCHARGE SUMMARY Name: WING EVANS Room #: 522A-A [facility] IN M.R.#: [id number] Admission: 09/14/19 Attend Phys: Atif Gordillo DO Discharge: 09/20/19 Date of : 49 Report #: [id number] THIS REPORT FOR: //name// CC: Atif Gordillo Donald Gonzales DATE OF SERVICE: 09/20/2019 INPATIENT PSYCHIATRIC DISCHARGE SUMMARY ATTENDING PHYSICIAN: Atif Gordillo DO AUTOMOTIVE ELECTRICAL HELPER AT THE TIME OF DISCHARGE: Harjinder Frye MD DISCHARGE DIAGNOSES: Major neurocognitive disorder, unspecified, that is historical. Also, the patient had delirium due to general medical condition, possibly UTI with accompanying psychosis that has resolved. The patient's comorbidities include diabetes mellitus type 2, on metformin; right hip degenerative joint disease; chronic peripheral neuropathy with deconditioning; hypertension; hyperlipidemia; restless leg syndrome. DISCHARGE PLAN: She is discharging to the [facility], psychiatric medical care to be achieved for the patient by the receiving facility. She has already been a resident there, 1800 calorie diabetic diet, 1800 calories. DISCHARGE MEDICATIONS: Seroquel 125 mg p.o. at bedtime, 25 mg p.o. daily. Lorazepam have been giving 1 mg 3 times a day in the hospital. I cut that down at discharge and gave a new prescription for 0.5 mg 3 times a day for 15-day prescription, metformin 1000 mg p.o. b.i.d. with meals, aspirin 325 mg p.o. daily, ferrous sulfate 325 mg p.o. daily, loratadine 1 tablet p.o. daily, Requip 2 mg p.o. at bedtime, senna and docusate 1 tab p.o. b.i.d. Metoprolol succinate, that is long-acting metoprolol 25 mg p.o. daily. Haloperidol was stopped this admission and actually I think have been just given from the medical floor. ACTIVITY LEVEL: As tolerated. The patient has been using a wheelchair, but she can use a rolling walker. REASON FOR ADMISSION: The patient was yelling, singing uncontrollably on the medical floor. She spent about 2 days there, so she was referred for psychiatric admission. HOSPITAL COURSE: The patient was admitted to Geriatric Psychiatry Unit. First, I thought she had a version of catatonia; therefore, antipsychotics were largely [address] [address] DISCHARGE SUMMARY Name: WING EVANS Room #: 522A-A [facility] IN ..#: [id number] Admission: 09/14/19 Attend Phys: Atif Gordillo, Discharge: 09/20/19 Date of : 49 Report #: [id number] cut out. The patient was placed on scheduled Ativan miraculously the next day. The patient was not having the vocalizations, gesticulations. perhaps an atypical catatonia presentation and was displaying normal sensorium, reasonable judgment. The patient continued to do well. We kept her a couple more days for observation. At this time, she can go back to nursing facility and there is no criteria for continued care in the Geriatric Psychiatry Unit. VITAL SIGNS: At this time, temperature 36.5, pulse 78, respirations 60, BP 114/70, O2 sat 96%. LABORATORY DATA: Significant laboratories during a psych admission, CBC was within normal limits. Chemistries just blood sugars were done. Interestingly, thyroid peroxidase antibody was 14, which I guess she was being worked up for Sofie's disease, but that was negative, I believe. MENTAL/Physcial STATUS EXAMINATION: Physical Using wheelchair mostly. MSE This is a well-developed female, elderly, frail appearing. Attention fair. Concentration fair. Speech is normal rate. Thought process is linear and goal oriented. Thought content focused on discharge. No psychomotor agitation. No psychomotor retardation. Denied SI or HI. Denied hopelessness, helplessness. Denied auditory, visual, or tactile hallucinations. Memory not formally tested, but known to be some impairment. Insight fair. Judgment fair to limited. Fund of knowledge, no greater than average. PROGNOSIS: For this patient is fair to guarded and will depend on risk factor control. I would recommend a psychiatrist followup at the snf given her unusual presentation this admission. <ELECTRONICALLY SIGNED> By: Atif Gordillo DO 09/21/19 2201 [id number] Atif Gordillo DO /nt
== END 2019-09-20 16:44 | DRG 884 ==
LOC: SBH 15:18
PROVIDERS: Internal Medicine; ADMIT Psychiatry & Neurology Psychiatry
DX: F01.51 Vascular dementia, unspecified severity, with behavioral disturbance (principal); N39.0 Urinary tract infection, site not specified; G93.40 Encephalopathy, unspecified; F05 Delirium due to known physiological condition; N18.4 Chronic kidney disease, stage 4 (severe); F29 Unspecified psychosis not due to a substance or known physiological condition; M16.11 Unilateral primary osteoarthritis, right hip; E11.42 Type 2 diabetes mellitus with diabetic polyneuropathy; E78.5 Hyperlipidemia, unspecified; G25.81 Restless legs syndrome; F43.10 Post-traumatic stress disorder, unspecified; F32.9 Major depressive disorder, single episode, unspecified; F41.9 Anxiety disorder, unspecified; E66.9 Obesity, unspecified; E11.22 Type 2 diabetes mellitus with diabetic chronic kidney disease; I12.9 Hypertensive chronic kidney disease with stage 1 through stage 4 chronic kidney disease, or unspecified chronic kidney disease; R53.81 Other malaise; F25.9 Schizoaffective disorder, unspecified; Z99.3 Dependence on wheelchair; Z79.84 Long term (current) use of oral hypoglycemic drugs; Z88.0 Allergy status to penicillin; Z88.6 Allergy status to analgesic agent; Z88.1 Allergy status to other antibiotic agents; Z88.8 Allergy status to other drugs, medicaments and biological substances; Z87.01 Personal history of pneumonia (recurrent); Z79.82 Long term (current) use of aspirin; Z79.899 Other long term (current) drug therapy
CPT/HCPCS: 10880